=== PATIENT | female | born 1980 | race Caucasian/White ===

== ENCOUNTER 2020-12-14 18:41 | Emergency (ER) | payer OTHER ==
[~2020-12-14] VITALS: Ht 167.6 cm; Wt 99.8 kg
[2020-12-14 18:42] VITALS: BP 120/73
[2020-12-14] MEDS ORDERED: IBU600 MG PO (19:20)
== END 2020-12-14 19:58 | disposition home or self-care (01) ==
LOC: ER 18:41
DX: S86.811A Strain of other muscle(s) and tendon(s) at lower leg level, right leg, initial encounter (principal); F41.9 Anxiety disorder, unspecified; F31.9 Bipolar disorder, unspecified; E66.01 Morbid (severe) obesity due to excess calories; Z79.899 Other long term (current) drug therapy; Z68.35 Body mass index [BMI] 35.0-35.9, adult; W18.30XA Fall on same level, unspecified, initial encounter; Y93.89 Activity, other specified; Y92.89 Other specified places as the place of occurrence of the external cause; Y99.8 Other external cause status